=== PATIENT | female | born 2000 | race Hispanic/Latino ===

== ENCOUNTER 2019-01-28 11:25 | Emergency (ER) | payer MEDICAID ==
[2019-01-28 11:50] LABS: APPEARANCE,URINE CLEAR (CLEAR); BILIRUBIN,URINE NEGATIVE (NEGATIVE); COLOR,URINE YELLOW (YELLOW); GLUCOSE, URINE (UA) NEGATIVE (NEGATIVE); KETONES,URINE NEGATIVE (NEGATIVE); LEUKOCYTE ESTERASE ,URINE NEGATIVE (NEGATIVE); NITRATE,URINE NEGATIVE (NEGATIVE); OCCULT BLOOD,URINE NEGATIVE (NEGATIVE); PH,URINE 6.5 (5.0-8.0); PROTEIN,URINE NEGATIVE (NEGATIVE); UROBILINOGEN,URINE 0.2 mg/dL (0.2-1.0)
[2019-01-28 11:53] LABS: HCG,QUAL RESULT POSITIVE (NEGATIVE)
[2019-01-28] MEDS ORDERED: ONDANSETRON ODT 4 MG TAB ONE (12:01)
== END 2019-01-28 12:04 | disposition home or self-care (01) ==
LOC: EDH 11:25
DX: O36.80X0 Pregnancy with inconclusive fetal viability, not applicable or unspecified (principal); O99.331 Smoking (tobacco) complicating pregnancy, first trimester; O21.9 Vomiting of pregnancy, unspecified; Z3A.13 13 weeks gestation of pregnancy
CPT/HCPCS: 81003; 81025

== ENCOUNTER 2019-04-27 22:03 | Observation (INO) | payer MEDICAID | END 2019-04-27 23:50 | disposition home or self-care (01) | LOC: EDH 22:03 → LDH 22:04 ==